=== PATIENT | male | born 1990 | race Caucasian/White ===

== ENCOUNTER 2017-08-05 16:25 | Emergency (ER) | payer OTHER ==
[~2017-08-05] VITALS: Ht 172.7 cm; Wt 86.2 kg
[~2017-08-05 16:25] MED LIST: Magic Mouthwash PO; PHENERGAN 25 MG25 M1 PO; PROMETHAZINE-C120 ML PO; ROBAXIN500 MG PO; STRATTERA25 MG PO; TRAMADOL 50 MG50 MG PO; TUSSIONEX PENN115 ML PO; ULTRAM 50MG TAB50 MG PO; ZPAK PO
[2017-08-05 17:14] LABS: INFLUENZA A ANTIGEN None Detected (None Detect); INFLUENZA B ANTIGEN None Detected (None Detect)
[2017-08-05] MEDS ORDERED: AZITHROMYCIN 2250 MG PO (17:41)
[2017-08-05] MEDS ORDERED: VENTOLIN HFA 1818 GM INH (17:41)
[2017-08-05 19:35] LABS: HEMATOCRIT 38.6 % (42.0-52.0); HEMOGLOBIN 12.9 gm/dL (14.0-18.0); MCH 29.6 pg (26.0-34.0); MCHC 33.5 g/dL (28.0-37.0); MCV 88.4 fL (80.0-100.0); MPV 8.4 fl. (7.2-11.1); NUCLEATED RBCS 0 /100WBC; PLATELET COUNT* 264 thou/uL (150-400); RBC 4.37 mil/uL (4.50-6.00); RDW-CV 13.1 % (10.5-14.5); WBC 7.7 thou/uL (4.0-11.0)
[2017-08-05 19:40] LABS: ANION GAP 10 mmol/L (7-16); BUN 12 mg/dL (7-18); CALCIUM 8.1 mg/dL (8.5-10.1); CHLORIDE 105 mmol/L (98-107); CO2 23 mmol/L (21-32); CREATININE 0.8 mg/dL (0.6-1.3); GLUCOSE 113 mg/dL (70-99); SODIUM 138 mmol/L (136-145)
[2017-08-05 19:51] LABS: ALBUMIN 3.4 g/dL (3.4-5.0); ALKALINE PHOSPHATASE 79 U/L (46-116); NT-PRO BRAIN NAT PEPTIDE 10 pg/mL (<300); SGOT 17 U/L (15-37); SGPT 36 U/L (30-65); TOTAL BILIRUBIN 0.2 mg/dL (<0.1-1.0); TOTAL PROTEIN 6.2 g/dL (6.4-8.2); TROPONIN-I LEVEL <0.06 ng/mL (<0.06)
[2017-08-05 20:01] LABS: ABSOLUTE EOSINOPHILS 0.1 thou/uL (0.0-0.7); ABSOLUTE LYMPHOCYTES 0.4 thou/uL (0.8-5.3); ABSOLUTE MONOCYTES 0.1 thou/uL (0.0-1.2); ABSOLUTE NEUTROPHILS 7.2 thou/uL (1.6-8.1); ATYPICAL LYMPHS 2 %; PLATELET ESTIMATE ADEQUATE
[2017-08-05 21:00] VITALS: BP 130/70
--- NOTE | 2017-08-06 10:20 | EKG ---
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
== END 2017-08-05 21:02 | disposition home or self-care (01) ==
LOC: M.ERS 16:25
PROVIDERS: Physician Assistant
DX: J18.8 Other pneumonia, unspecified organism (principal); R00.0 Tachycardia, unspecified; F10.99 Alcohol use, unspecified with unspecified alcohol-induced disorder; Z88.0 Allergy status to penicillin; Z88.8 Allergy status to other drugs, medicaments and biological substances

== ENCOUNTER 2017-09-19 21:47 | Emergency (ER) | payer OTHER ==
[~2017-09-19] VITALS: Ht 172.7 cm; Wt 86.2 kg
[~2017-09-19 21:47] MED LIST changes: +AZITHROMYCIN 2250 MG PO; +VENTOLIN HFA 1818 GM INH
[2017-09-19 22:15] LABS: INFLUENZA A ANTIGEN None Detected (None Detect); INFLUENZA B ANTIGEN None Detected (None Detect)
[2017-09-19] MEDS ORDERED: PREDNISONE 20 M20 M1 PO (22:55)
[2017-09-19] MEDS ORDERED: PROAIR HFA8.5 GM INH (22:55)
[2017-09-19 23:09] VITALS: BP 116/53
== END 2017-09-19 23:10 | disposition home or self-care (01) ==
LOC: M.ERS 21:47
PROVIDERS: Nurse Practitioner Family
DX: J20.9 Acute bronchitis, unspecified (principal); R50.9 Fever, unspecified; R05 Cough; Z88.0 Allergy status to penicillin; Z88.6 Allergy status to analgesic agent

== ENCOUNTER 2018-06-11 09:30 | Emergency (ER) | payer OTHER ==
[~2018-06-11] VITALS: Ht 170.2 cm; Wt 86.2 kg
[~2018-06-11 09:30] MED LIST changes: +PREDNISONE 20 M20 M1 PO; +PROAIR HFA8.5 GM INH
[2018-06-11 10:20] LABS: INFLUENZA A ANTIGEN None Detected (None Detect); INFLUENZA B ANTIGEN None Detected (None Detect)
[2018-06-11] MEDS ORDERED: TRAMADOL 50 MG50 MG PO (10:24)
[2018-06-11 10:27] VITALS: BP 136/89
== END 2018-06-11 10:28 | disposition home or self-care (01) ==
LOC: M.ERS 09:30
PROVIDERS: Emergency Medicine
DX: J06.9 Acute upper respiratory infection, unspecified (principal); Z87.01 Personal history of pneumonia (recurrent); Z88.6 Allergy status to analgesic agent; Z88.0 Allergy status to penicillin

== ENCOUNTER 2019-05-06 10:33 | Emergency (ER) | payer OTHER ==
[~2019-05-06] VITALS: Ht 170.2 cm; Wt 89.8 kg
[2019-05-06 10:39] VITALS: BP 131/86
[2019-05-06] MEDS ORDERED: DOXYCYCLINE 10100 MG PO (10:50)
== END 2019-05-06 10:57 | disposition home or self-care (01) ==
LOC: M.ERS 10:33
DX: L73.9 Follicular disorder, unspecified (principal); B08.4 Enteroviral vesicular stomatitis with exanthem; Z88.0 Allergy status to penicillin; Z88.6 Allergy status to analgesic agent; Z87.01 Personal history of pneumonia (recurrent)

== ENCOUNTER 2021-02-28 04:07 | Emergency (ER) | payer OTHER ==
[~2021-02-28] VITALS: Ht 172.7 cm; Wt 104.4 kg
[~2021-02-28 04:07] MED LIST changes: +DOXYCYCLINE 10100 MG PO
[2021-02-28] MEDS ORDERED: TORADOL 10 MG T10 MG PO (06:25)
[2021-02-28] MEDS ORDERED: ULTRAM50 MG PO (06:25)
[2021-02-28 06:42] VITALS: BP 137/80
== END 2021-02-28 06:43 | disposition home or self-care (01) ==
LOC: M.ERS 04:07
DX: R51.9 Headache, unspecified (principal); Z88.0 Allergy status to penicillin; Z88.6 Allergy status to analgesic agent; Z87.01 Personal history of pneumonia (recurrent)